=== PATIENT | male | born 1945 | race Caucasian/White ===

== ENCOUNTER 2018-11-20 20:10 | Emergency (ER) | payer BC ==
[2018-11-20 20:14] VITALS: BP 117/80
[2018-11-20 20:41] LABS: CHLORIDE,CL 108 mEq/L (98-106); SODIUM,NA 142 mEq/L (136-145)
--- NOTE | 2018-11-20 20:48 | EDM.PDOC ---
ED HPI GENERAL MEDICAL PROBLEM - General Chief Complaint: Cardiovascular Problem Stated Complaint: "chest pressure" twice today Time Seen by Provider: 11/20/18 20:42 Source of Information: Reports: Patient History Limitations: Reports: No Limitations - History of Present Illness INITIAL COMMENTS - FREE TEXT/NARRATIVE: This patient is a 73 year old male that presents to the ER. Patent reports that he was walking in a parade this morning about 11am, about 5 blocks. He reports during walking he began to have central chest pressure. Patient reports the pain lasted 1 hour and resolved after he was done waling the parade. Patient reports it resolved completely. Then this evening while out feeding the cows at 6:30pm, he started having this central chest pressure again. He reports after feeding the cows he went inside, sat at the table and still had the chest pressure. He reports then they decided to come to the ER. while driving here in the car the pressure resolved. His pressure during both episodes was a 3/10. Currently in the ER it is 0/10, completely resolved. Patient denies shortness of breath, nausea, vomiting, coughing, indigestion, burping. He reports the only symptom he had was chest pressure. Onset: Today Onset Date: 11/20/18 Onset Time: 11:00 Duration: Hour(s): (1), Resolved Prior to Arrival Location: Reports: Chest Quality: Reports: Pressure Severity: Mild Improves with: Reports: None Worsens with: Reports: None Associated Symptoms: Reports: Chest Pain. Denies: Confusion, Cough, cough w sputum, Diaphoresis, Fever/Chills, Headaches, Loss of Appetite, Malaise, Nausea/ Vomiting, Rash, Seizure, Shortness of Breath, Syncope, Weakness - Related Data Allergies Allergy/AdvReac Type Severity Reaction Status Date / Time atorvastatin calcium Allergy Weakness Verified 11/20/18 20:11 [From Lipitor] Home Meds: Home Meds Dutasteride [Avodart] 0.5 mg PO DAILY 04/01/14 [History] Lisinopril [Prinivil] 20 mg PO DAILY 04/01/14 [History] Metoprolol Succinate [Toprol XL] 25 mg PO DAILY 04/01/14 [History] Past Medical History HEENT History: Reports: Impaired Vision Cardiovascular History: Reports: High Cholesterol, Hypertension Respiratory History: Reports: Pneumonia, Recurrent, Sleep Apnea Gastrointestinal History: Reports: GERD Genitourinary History: Reports: Prostate Disorder, Renal Calculus Musculoskeletal History: Reports: Fracture - Past Surgical History GI Surgical History: Reports: Hernia Repair/Other Male Surgical History: Reports: Kidney Stone Extraction, Renal Calculus Musculoskeletal Surgical History: Reports: ORIF Social & Family History - Family History Family Medical History: Noncontributory - Tobacco Use Smoking Status *Q: Never Smoker - Caffeine Use Caffeine Use: Reports: None - Recreational Drug Use Recreational Drug Use: No ED ROS GENERAL - Review of Systems Review Of Systems: See Below Constitutional: Reports: No Symptoms HEENT: Reports: No Symptoms Respiratory: Reports: No Symptoms Cardiovascular: Reports: Chest Pain. Denies: Dyspnea on Exertion, Edema, Lightheadedness, Orthopnea, Palpitations, Syncope Endocrine: Reports: No Symptoms GI/Abdominal: Reports: No Symptoms. Denies: Nausea, Vomiting : Reports: No Symptoms Musculoskeletal: Reports: No Symptoms Skin: Reports: No Symptoms Neurological: Reports: No Symptoms Psychiatric: Reports: No Symptoms Hematologic/Lymphatic: Reports: No Symptoms Immunologic: Reports: No Symptoms ED EXAM, GENERAL - Physical Exam Exam: See Below Exam Limited By: No Limitations General Appearance: Alert, WD/WN, No Apparent Distress Eye Exam: Left Eye: Normal Inspection, PERRL Ears: Normal External Exam, Normal Canal, Hearing Grossly Normal, Normal TMs Ear Exam: Bilateral Ear: Auricle Normal, Canal Normal, TM normal Nose: Normal Inspection, Normal Mucosa, No Blood Throat/Mouth: Normal Inspection, Normal Lips, Normal Teeth, Normal Gums, Normal Oropharynx, Normal Voice, No Airway Compromise Head: Atraumatic, Normocephalic Neck: Normal Inspection, Supple, Non-Tender, Full Range of Motion Respiratory/Chest: No Respiratory Distress, Lungs Clear, Normal Breath Sounds, No Accessory Muscle Use, Chest Non-Tender Cardiovascular: Normal Peripheral Pulses, Regular Rate, Rhythm, No Edema, No Gallop, No JVD, No Murmur, No Rub Peripheral Pulses: 2+: Radial (L), Radial (R), Posterior Tibial (L), Posterior Tibial (R), Dorsalis Pedis (L), Dorsalis Pedis (R) GI/Abdominal: Normal Bowel Sounds, Soft, Non-Tender, No Organomegaly, No Distention, No Abnormal Bruit, Pelvis Stable, Hernia Back Exam: Normal Inspection, Full Range of Motion Extremities: Normal Inspection, Normal Range of Motion, Non-Tender, No Pedal Edema, Normal Capillary Refill Neurological: Alert, Oriented, Normal Cognition, Normal Gait, No Motor/Sensory Deficits Psychiatric: Normal Affect, Normal Mood Skin Exam: Warm, Dry, Intact, Normal Color, No Rash Lymphatic: No Adenopathy EKG INTERPRETATION EKG Date: 11/20/18 Time: 20:24 Rhythm: NSR Rate (Beats/Min): 72 Course - Vital Signs Last Recorded V/S: Last Vital Signs Temp 98.4 F 11/20/18 20:12 Pulse 72 11/20/18 20:12 Resp 18 11/20/18 20:12 BP 117/80 11/20/18 20:12 Pulse Ox 96 11/20/18 20:12 - Orders/Labs/Meds Orders: Active Orders 24 hr Category Date Time Status Chest 2V [CR] Stat Exams 11/20/18 20:14 Taken Labs: Laboratory Tests 11/20/18 11/20/18 11/20/18 Range/Units 20:22 20:22 20:22 WBC 6.3 (5.0-10.0) 10^3/uL RBC 4.48 L (4.50-6.00) 10^6/uL Hgb 14.8 (14.0-18.0) g/dL Hct 43.6 (40.0-54.0) % MCV 97.3 H (82.0-94.0) fL MCH 33.0 H (27.0-32.0) pg MCHC 33.9 (33.0-38.0) g/dL RDW Coeff of Pritesh 13.3 (11.0-15.0) % Plt Count 167 (150-400) 10^3/uL Neut % (Auto) 65.7 (35-85) % Lymph % (Auto) 22.2 (10-55) % [place] % (Auto) 8.3 (0-16) % Eos % (Auto) 3.3 (0-5) % Baso % (Auto) 0.5 (0-3) % Neut # (Auto) 4.14 (1.80-7.00) 10^3/uL Lymph # (Auto) 1.40 (1.00-4.80) 10^3/uL [place] # (Auto) 0.52 (0.00-0.80) 10^3/uL Eos # (Auto) 0.21 (0.00-0.45) 10^3/uL Baso # (Auto) 0.03 10^3/uL PT 10.2 (9.7-12.3) SEC INR 0.99 (0.92-1.18) Sodium 142 (136-145) mEq/L Potassium 3.9 (3.5-5.0) mEq/L Chloride 108 H (98-106) mEq/L Carbon Dioxide 25 (21-32) mmol/L BUN 24 H (7-18) mg/dL Creatinine 1.2 (0.7-1.3) mg/dL Est Cr Clr Drug Dosing 53.83 mL/min Estimated GFR (MDRD) 60 (>=60) mL/min Glucose 94 (75-99) mg/dL Calcium 8.6 (8.4-10.1) mg/dL Lactate Dehydrogenase 199 H (100-190) U/L Creatine Kinase 313 H (35-232) U/L Troponin I < 0.017 (0.00-0.06) ng/mL 11/20/18 Range/Units 23:26 WBC (5.0-10.0) 10^3/uL RBC (4.50-6.00) 10^6/uL Hgb (14.0-18.0) g/dL Hct (40.0-54.0) % MCV (82.0-94.0) fL MCH (27.0-32.0) pg MCHC (33.0-38.0) g/dL RDW Coeff of Pritesh (11.0-15.0) % Plt Count (150-400) 10^3/uL Neut % (Auto) (35-85) % Lymph % (Auto) (10-55) % [place] % (Auto) (0-16) % Eos % (Auto) (0-5) % Baso % (Auto) (0-3) % Neut # (Auto) (1.80-7.00) 10^3/uL Lymph # (Auto) (1.00-4.80) 10^3/uL [place] # (Auto) (0.00-0.80) 10^3/uL Eos # (Auto) (0.00-0.45) 10^3/uL Baso # (Auto) 10^3/uL PT (9.7-12.3) SEC INR (0.92-1.18) Sodium (136-145) mEq/L Potassium (3.5-5.0) mEq/L Chloride (98-106) mEq/L Carbon Dioxide (21-32) mmol/L BUN (7-18) mg/dL Creatinine (0.7-1.3) mg/dL Est Cr Clr Drug Dosing mL/min Estimated GFR (MDRD) (>=60) mL/min Glucose (75-99) mg/dL Calcium (8.4-10.1) mg/dL Lactate Dehydrogenase (100-190) U/L Creatine Kinase (35-232) U/L Troponin I < 0.017 (0.00-0.06) ng/mL - Radiology Interpretation Free Text/Narrative:: CXR: No infiltrates, no cardiomegaly, no pulmonary edema. - Re-Assessments/Exams Free Text/Narrative Re-Assessment/Exam: 11/20/18 23:53 Patient CP free during entire ER extended stay. Two negative troponins. Discussed case with [employer] hazmat tanker driver from [facility], will discharge patient home and he should have a stress test within the next couple of days. Patient reports he does have high cholesterol, but the medications make him ill so he will not take them. I educated to the patient to see his PCP preferably tuesday , Tuesday at the latest. I educated the patient that if his pain/pressure returns at all, he is to return to the ER [facility]. I wrote an order for the patient to obtain a stress test STAT. Patient voices back that he will see Shara Chapman Tuesday and call as soon as clinic opens to schedule Stress test. Departure - Departure Time of Disposition: 23:54 Disposition: Home, Self-Care 01 Condition: Fair Clinical Impression: Stable angina Chest pain Qualifiers: Chest pain type: other chest pain Qualified Code(s): R07.89 - Other chest pain Instructions: Nonspecific Chest Pain, [id number] Referrals: Rafa Ravi PA-C [Primary Care Provider] - Forms: ED Department Discharge Additional Instructions: Followup with your primary care provider Tuesday or Tuesday Return to the ER for worsening of condition or return or pain, or any other concerns Rest No activity STRESS TEST: PLEASE CALL [facility] FOR THIS TEST TO BE SCHEDULED Tuesday AT 8AM. I HAVE PLACED THE ORDER. Take Aspirin 81mg once a day until discuss with primary care provider - My Orders Last 24 Hours: My Active Orders 11/20/18 20:14 Chest 2V [CR] Stat - Assessment/Plan Last 24 Hours: My Active Orders 11/20/18 20:14 Chest 2V [CR] Stat Plan: PLEASE SEE RN NOTE FOR PFSH
== END 2018-11-21 00:09 | disposition home or self-care (01) ==
LOC: CC.ED 20:10
DX: I20.8 Other forms of angina pectoris (principal); E78.00 Pure hypercholesterolemia, unspecified; I10 Essential (primary) hypertension; K21.9 Gastro-esophageal reflux disease without esophagitis; Z88.8 Allergy status to other drugs, medicaments and biological substances; Z79.899 Other long term (current) drug therapy
CPT/HCPCS: 36415; 71046; 80048; 82550; 83615; 84484; 85025; 85610; 93005; 99285-25

== ENCOUNTER 2019-05-08 09:45 | Emergency (ER) | payer BC ==
[~2019-05-08 09:45] MED LIST: Ketorolac 30 MG/ML SDV ONE; Lactated Ringers 1,000 ML ONE
[2019-05-08] MEDS ORDERED: Ketorolac 30 MG/ML SDV IVPUSH ONE (09:50)
[2019-05-08] MEDS ORDERED: Lactated Ringers 1,000 ML IV ONE (09:57)
[2019-05-08 10:02] VITALS: BP 145/87; PULSE 75
--- NOTE | 2019-05-08 11:34 | EDM.PDOC ---
ED HPI GENERAL MEDICAL PROBLEM - General Chief Complaint: Abdominal Pain Stated Complaint: abd pain Time Seen by Provider: 05/08/19 10:15 Source of Information: Reports: Patient History Limitations: Reports: No Limitations - History of Present Illness INITIAL COMMENTS - FREE TEXT/NARRATIVE: Adam is a 73 year old male who presents to the ED with c/o left flank pain radiating to his left groin. He reports onset of pain around 0700 this morning. Pain has been constant since. Rates pain a /10. He does appear in acute distress. He reports pain is constant. Has not had any fevers, chills, N/V/D, chest pain, shortness of breath, hematuria, dysuria. Does report he has a history of kidney stones. Is also 7 wks status post CABG x 4. Onset: Today, Sudden Onset Date: 05/08/19 Onset Time: 07:00 Duration: Constant Location: Reports: Back (left flank), Radiates to, Other (left groin) Quality: Reports: Sharp Severity: Severe Improves with: Reports: None Worsens with: Reports: None Associated Symptoms: Reports: No Other Symptoms Left Lower Abdomen Pain Score (Numeric/FACES): 9 - Related Data Allergies Allergy/AdvReac Type Severity Reaction Status Date / Time atorvastatin calcium Allergy Weakness Verified 05/08/19 09:49 [From Lipitor] Home Meds: Home Meds Dutasteride [Avodart] 0.5 mg PO DAILY 04/01/14 [History] Lisinopril [Prinivil] 5 mg PO DAILY 04/01/14 [History] Metoprolol Succinate [Toprol XL] 75 mg PO DAILY 04/01/14 [History] Aspirin [Adult Low Dose Aspirin EC] 81 tab PO DAILY 11/22/18 [History] Clopidogrel [Plavix] 75 mg PO DAILY 05/08/19 [History] Ketorolac [Toradol] 10 mg PO Q6H PRN #20 tab 05/08/19 [Rx] Nitroglycerin [Nitrostat] 0.4 mg PO ASDIRECTED 05/08/19 [History] Rosuvastatin [Crestor] 40 mg PO DAILY 05/08/19 [History] Past Medical History HEENT History: Reports: Impaired Vision Cardiovascular History: Reports: Bypass, CAD, High Cholesterol, Hypertension, [place] Respiratory History: Reports: Pneumonia, Recurrent, Sleep Apnea Gastrointestinal History: Reports: GERD, Hiatal Hernia Genitourinary History: Reports: Prostate Disorder, Renal Calculus Musculoskeletal History: Reports: Fracture - Past Surgical History GI Surgical History: Reports: Hernia Repair/Other Male Surgical History: Reports: Kidney Stone Extraction, Renal Calculus Musculoskeletal Surgical History: Reports: ORIF, Other (See Below) Other Musculoskeletal Surgeries/Procedures:: L) upper arm shrapnel Social & Family History - Family History Family Medical History: Noncontributory - Tobacco Use Smoking Status *Q: Never Smoker - Caffeine Use Caffeine Use: Reports: Coffee - Recreational Drug Use Recreational Drug Use: No ED ROS GENERAL - Review of Systems Review Of Systems: Comprehensive ROS is negative, except as noted in HPI. ED EXAM, RENAL/ - Physical Exam Exam: See Below Exam Limited By: No Limitations General Appearance: Alert, WD/WN, No Apparent Distress Throat/Mouth: Normal Inspection, Normal Lips, Normal Teeth, Normal Gums, Normal Oropharynx, Normal Voice, No Airway Compromise Head: Atraumatic, Normocephalic Neck: Normal Inspection, Supple, Non-Tender, Full Range of Motion Respiratory/Chest: No Respiratory Distress, Lungs Clear, Normal Breath Sounds, No Accessory Muscle Use, Chest Non-Tender Cardiovascular: Normal Peripheral Pulses, Regular Rate, Rhythm, No Edema, No Gallop, No JVD, No Murmur, No Rub GI/Abdominal: Normal Bowel Sounds, Soft, Non-Tender, No Distention, No Abnormal Bruit, No Mass Back Exam: Normal Inspection, Full Range of Motion. No: CVA Tenderness (L), CVA Tenderness (R) Extremities: Normal Inspection, Normal Range of Motion, Non-Tender, Normal Capillary Refill, No Pedal Edema Neurological: Alert, Oriented, CN II-XII Intact, Normal Cognition, Normal Gait, Normal Reflexes, No Motor/Sensory Deficits Psychiatric: Normal Affect, Normal Mood Skin Exam: Warm, Dry, Intact, Normal Color, No Rash Course - Vital Signs Last Recorded V/S: Last Vital Signs Temp 98.6 F 05/08/19 09:50 Pulse 75 05/08/19 09:50 Resp 16 05/08/19 09:50 BP 145/87 H 05/08/19 09:50 Pulse Ox 97 05/08/19 09:50 - Orders/Labs/Meds Orders: Active Orders 24 hr Category Date Time Status Abdomen Pelvis wo Cont [CT] Stat Exams 05/08/19 10:22 Taken Labs: Laboratory Tests 05/08/19 05/08/19 05/08/19 Range/Units 09:50 09:55 09:55 WBC 9.9 (5.0-10.0) 10^3/uL RBC 4.38 L (4.50-6.00) 10^6/uL Hgb 14.1 (14.0-18.0) g/dL Hct 43.9 (40.0-54.0) % MCV 100.2 H (82.0-94.0) fL MCH 32.2 H (27.0-32.0) pg MCHC 32.1 L (33.0-38.0) g/dL RDW Coeff of Pritesh 14.2 (11.0-15.0) % Plt Count 208 (150-400) 10^3/uL Neut % (Auto) 78.7 (35-85) % Lymph % (Auto) 11.3 (10-55) % [place] % (Auto) 7.5 (0-16) % Eos % (Auto) 2.1 (0-5) % Baso % (Auto) 0.4 (0-3) % Neut # (Auto) 7.76 H (1.80-7.00) 10^3/uL Lymph # (Auto) 1.12 (1.00-4.80) 10^3/uL [place] # (Auto) 0.74 (0.00-0.80) 10^3/uL Eos # (Auto) 0.21 (0.00-0.45) 10^3/uL Baso # (Auto) 0.04 10^3/uL Sodium 140 (136-145) mEq/L Potassium 4.0 (3.5-5.0) mEq/L Chloride 102 (98-106) mEq/L Carbon Dioxide 27 (21-32) mmol/L BUN 24 H (7-18) mg/dL Creatinine 1.3 (0.7-1.3) mg/dL Est Cr Clr Drug Dosing 49.69 mL/min Estimated GFR (MDRD) 54 L (>=60) mL/min Glucose 111 H (75-99) mg/dL Calcium 9.7 (8.4-10.1) mg/dL Total Bilirubin 0.4 (0.0-1.0) mg/dL AST 13 L (15-37) U/L ALT 16 (12-78) U/L Alkaline Phosphatase 88 (46-116) U/L C-Reactive Protein 1.1 H (0.2-0.8) mg/dL Total Protein 7.8 (6.4-8.2) g/dL Albumin 3.7 (3.4-5.0) g/dL Urine Color Yellow (YELLOW) Urine Appearance Slightly cloudy (CLEAR) Urine pH 5.0 (4.5-8.0) Ur Specific [place] 1.015 (1.003-1.020) Urine Protein 100 H (NEGATIVE) mg/dL Urine Glucose (UA) Negative (NEGATIVE) mg/dL Urine Ketones Negative (NEGATIVE) mg/dL Urine Occult Blood Large H (NEGATIVE) Urine Nitrite Negative (NEGATIVE) Urine Bilirubin Negative (NEGATIVE) Urine Urobilinogen 0.2 (0.2-1.0) EU/dL Ur Leukocyte Esterase Negative (NEGATIVE) Urine RBC 75-100 H (0-5) /HPF Urine WBC 0-5 (0-5) /HPF Ur Epithelial Cells Few H (NOT SEEN) /HPF Amorphous Sediment Moderate H (NOT SEEN) /HPF Urine Bacteria Few H (NOT SEEN) /HPF Meds: Medications Discontinued Medications Generic Name Dose Route Start Last Admin Trade Name Tonja PRN Reason Stop Dose Admin Lactated Ringer's Confirm 05/08/19 09:41 05/08/19 10:08 Ringers, Lactated Administered 05/08/19 09:42 Not Given Dose 1,000 mls @ as directed .ROUTE .STK-MED ONE Lactated Ringer's 1,000 mls @ 999 mls/hr 05/08/19 09:57 05/08/19 09:55 Ringers, Lactated IV 05/08/19 10:57 999 mls/hr .BOLUS ONE Administration Ketorolac Tromethamine 30 mg 05/08/19 09:50 05/08/19 09:50 Toradol IVPUSH 05/08/19 09:51 30 mg ONETIME ONE Administration Ketorolac Tromethamine Confirm 05/08/19 09:40 05/08/19 10:08 Toradol Administered 05/08/19 09:41 Not Given Dose 30 mg .ROUTE .STK-MED ONE - Radiology Interpretation Free Text/Narrative:: CT shows 3 mm stone in distal left ureter, almost at junction of bladder. Does also have mild hydroureternephrosis on left side. Other findings include large hiatal hernia and small right pleural effusion. Findings discussed with patient and spouse. CT Results Date: 05/08/19 CT Results Time: 11:28 Departure - Departure Time of Disposition: :29 Disposition: Home, Self-Care 01 Condition: Fair Clinical Impression: Left ureteral stone - Discharge Information *PRESCRIPTION DRUG MONITORING PROGRAM REVIEWED*: Not Applicable *COPY OF PRESCRIPTION DRUG MONITORING REPORT IN PATIENT HERB: Not Applicable Prescriptions: Ketorolac [Toradol] 10 mg PO Q6H PRN #20 tab PRN Reason: Pain Instructions: Kidney Stones, [id number] Referrals: Rafa Ravi PA-C [Primary Care Provider] - Forms: ED Department Discharge Additional Instructions: The following six steps can be taken to reduce the risk of forming calcium oxalate stones: 1. Eat fewer high-oxalate foods. The first suggestion is the most obvious. The more oxalate that is absorbed from your digestive tract, the more oxalate in your urine. High-oxalate foods to limit, if you eat them, are: * Spinach * Bran flakes * Rhubarb * Beets * Potato chips * Albanian fries * Nuts and nut butters You do not need to cut out other healthy foods that provide some oxalate. In fact, oxalate is practically unavoidable, because most plant foods have some. Often a combination of calcium from foods or beverages with meals and fewer high -oxalate foods is required. 2. Increase the amount of calcium in your diet. Low amounts of calcium in your diet will increase your chances of forming calcium oxalate kidney stones. Many people are afraid to eat calcium because of the name "calcium oxalate stones." However, calcium binds oxalate in the intestines. A diet rich in calcium helps reduce the amount of oxalate being absorbed by your body, so stones are less likely to form. Eat calcium rich foods and beverages every day (2 to 3 servings) from dairy foods or other calcium-rich foods. Also, eating high calcium foods at the same time as high oxalate food is helpful ; for example have low fat cheese with a spinach salad or yogurt with berries. If you take a calcium supplement, calcium citrate is the preferred form. 3. Limit the vitamin C content of your diet. Oxalate is produced as an end product of Vitamin C (ascorbic acid) metabolism. Large doses of Vitamin C may increase the amount of oxalate in your urine, increasing the risk of kidney stone formation. If you are taking a supplement, do not take more than 500 mg of Vitamin C daily. 4. Drink the right amount of fluids every day. It is very important to drink plenty of liquids. Your goal should be 10-12 glasses a day. At least 5-6 glasses should be water. You may also want to consider drinking lemonade. Research suggests that lemonade may be helpful in reducing the risk of calcium oxalate stone formation. 5. Eat the right amount of protein daily. Eating large amounts of protein may increase the risk of kidney stone formation. Your daily protein needs can usually be met with 2-3 servings a day, or 4 to 6 ounces. Eating more than this if you are at risk at kidney stones is unnecessary. 6. Reduce the amount of sodium in your diet. Reduce the amount of sodium in your diet to 2-3 grams per day. Limit eating processed foods such as hot dogs, deli meats, sausage, canned products, dry soup mixes, sauerkraut, pickles, and various convenience mixes. - Toradol 1 tablet every 6 hours as needed for pain - Push fluids - Follow up with PCP for recheck in 5-7 days, sooner if needed - Return to ED for any emergent needs - Problem List & Annotations (1) Left ureteral stone SNOMED Code(s): 07728420 Code(s): N20.1 - CALCULUS OF URETER Status: Acute - My Orders Last 24 Hours: My Active Orders 05/08/19 10:22 Abdomen Pelvis wo Cont [CT] Stat - Assessment/Plan Last 24 Hours: My Active Orders 05/08/19 10:22 Abdomen Pelvis wo Cont [CT] Stat Plan: Patient was given 30 mg Toradol and 1 L LR fluid bolus. Did report pain improved from 10/10 to 0/10 following Toradol. Throughout remainder of ED stay, patient had no further pain. CT did show 3 mm stone of left distal ureter, almost into bladder. Discussed these findings with patient and that he should pass stone on own without difficulty. Did discuss straining urine to determine passing of stone. He does have strainer at home. Recommend he continue Avodart and use Toradol as needed for pain. Recommend he follow up with his PCP for recheck next week, sooner if any issues. Patient and spouse verbalized understanding and were agreeable with plan. Patient discharged home in satisfactory condition with no further c/o pain.
== END 2019-05-08 11:40 | disposition home or self-care (01) ==
LOC: CC.ED 09:45
DX: N13.2 Hydronephrosis with renal and ureteral calculous obstruction (principal); I10 Essential (primary) hypertension; E78.00 Pure hypercholesterolemia, unspecified; I25.10 Atherosclerotic heart disease of native coronary artery without angina pectoris; K21.9 Gastro-esophageal reflux disease without esophagitis; Z88.8 Allergy status to other drugs, medicaments and biological substances; Z79.899 Other long term (current) drug therapy
CPT/HCPCS: 36415; 74176; 80053; 81001; 85025; 86140; 96361; 96374; 99284; J1885; J7120

== ENCOUNTER 2023-03-07 19:08 | Emergency (ER) | payer BC ==
[2023-03-07 19:11] VITALS: BP 140/81; PULSE 67
[2023-03-07] MEDS: Take Home: Amoxicillin/Clavulanate K 875-125 MG Tab, 2 Tab Pack PO ONE (19:50)
[2023-03-07] MEDS: Diphtheria,Pertussis(Acell),Tetanus Vaccine 0.5 ML Syringe IM ONE (19:50)
== END 2023-03-07 19:59 | disposition home or self-care (01) ==
LOC: CC.ED 19:08
DX: S51.851A Open bite of right forearm, initial encounter (principal); I25.10 Atherosclerotic heart disease of native coronary artery without angina pectoris; E78.00 Pure hypercholesterolemia, unspecified; I10 Essential (primary) hypertension; I25.2 Old myocardial infarction; Z23 Encounter for immunization; Z88.8 Allergy status to other drugs, medicaments and biological substances; Z79.82 Long term (current) use of aspirin; Z79.899 Other long term (current) drug therapy; W55.01XA Bitten by cat, initial encounter
CPT/HCPCS: 90471; 90715; 99283; 99283-25; A9270-GY

== ENCOUNTER 2023-11-18 12:11 | Emergency (ER) | payer BC ==
[2023-11-18 12:38] VITALS: BP 121/80; PULSE 58
[2023-11-18 12:47] LABS: BASOPHILS ABSOLUTE AUTO 0.02 10^3/uL (0.00-0.50); BASOPHILS PERCENT AUTO 0.3 % (0-1); EOSINOPHILS ABSOLUTE AUTO 0.19 10^3/uL (0.00-1.50); HEMATOCRIT 48.6 % (42.0-52.0); HEMOGLOBIN 15.9 g/dL (14.0-18.0); IMMATURE GRAN ABSOLUTE AUTO 0.02 10^3/uL (0.00-0.49); IMMATURE GRAN PERCENT AUTO 0.3 % (0.0-4.9); LYMPHOCYTES ABSOLUTE AUTO 1.21 10^3/uL (0.60-5.00); MEAN CORPUSCULAR HEMOGLOBIN 32.6 pg (27.0-32.0); MEAN CORPUSCULAR HGB CONC 32.7 g/dL (32.0-36.0); MEAN CORPUSCULAR VOLUME 99.8 fL (83.0-97.0); MONOCYTES ABSOLUTE AUTO 0.48 10^3/uL (0.00-1.50); MONOCYTES PERCENT AUTO 7.5 % (0-10); NEUTROPHILS ABSOLUTE AUTO 4.45 x10^3/uL (1.80-8.00); NEUTROPHILS PERCENT AUTO 69.9 % (41-71); PLATELET COUNT,PLT 171 10^3/uL (150-400); RED BLOOD CELL COUNT 4.87 x10^6/uL (4.50-6.00); WHITE BLOOD CELL COUNT,WBC 6.4 10^3/uL (4.0-11.0)
[2023-11-18 13:02] LABS: ALANINE AMINOTRANSFERASE,ALT 24 U/L (12-78); ALBUMIN 3.6 g/dL (3.4-5.0); ALKALINE PHOSPHATASE 83 U/L (46-116); ASPARTATE AMNIOTRANSFERASE,AST 19 U/L (15-37); BILIRUBIN TOTAL 0.4 mg/dL (0.0-1.0); BLOOD UREA NITROGEN,BUN 29 mg/dL (7-18); CALCIUM 8.6 mg/dL (8.4-10.1); CARBON DIOXIDE,CO2 26 mmol/L (21-32); CHLORIDE,CL 106 mEq/L (98-106); CREATININE 1.1 mg/dL (0.7-1.3); EST CRCL DRUG DOSING (CG) 50.75 mL/min; GLUCOSE RANDOM 100 mg/dL (75-99); MAGNESIUM 2.1 mg/dL (1.8-2.4); POTASSIUM,K 4.3 mEq/L (3.5-5.0); SODIUM,NA 141 mEq/L (136-145)
[2023-11-18 13:03] LABS: C-REACTIVE PROTEIN < 0.50 mg/dL (<=0.50); ESTIMATED GFR 69 mL/min (>=60)
== END 2023-11-18 14:40 | disposition home or self-care (01) ==
LOC: CC.ED 12:11
DX: S46.912A Strain of unspecified muscle, fascia and tendon at shoulder and upper arm level, left arm, initial encounter (principal); H61.23 Impacted cerumen, bilateral; R55 Syncope and collapse; I10 Essential (primary) hypertension; E78.00 Pure hypercholesterolemia, unspecified; I25.2 Old myocardial infarction; K21.9 Gastro-esophageal reflux disease without esophagitis; I25.10 Atherosclerotic heart disease of native coronary artery without angina pectoris; Z79.899 Other long term (current) drug therapy; Z88.8 Allergy status to other drugs, medicaments and biological substances; Z79.82 Long term (current) use of aspirin; Z95.1 Presence of aortocoronary bypass graft; W19.XXXA Unspecified fall, initial encounter
CPT/HCPCS: 36415; 71045; 80053; 83735; 84484; 85025; 86140; 93005; 93010; 99284

== ENCOUNTER 2024-02-24 11:11 | Emergency (ER) | payer BC ==
[2024-02-24] MEDS: Aspirin 81 MG Tab.Chew PO ONE (11:18)
[2024-02-24 11:39] LABS: BASOPHILS ABSOLUTE AUTO 0.02 10^3/uL (0.00-0.50); BASOPHILS PERCENT AUTO 0.4 % (0-1); EOSINOPHILS PERCENT AUTO 1.8 % (0-6); HEMATOCRIT 46.6 % (42.0-52.0); HEMOGLOBIN 15.5 g/dL (14.0-18.0); IMMATURE GRAN ABSOLUTE AUTO 0.02 10^3/uL (0.00-0.49); IMMATURE GRAN PERCENT AUTO 0.4 % (0.0-4.9); LYMPHOCYTES ABSOLUTE AUTO 0.86 10^3/uL (0.60-5.00); LYMPHOCYTES PERCENT AUTO 15.8 % (24-44); MEAN CORPUSCULAR HEMOGLOBIN 32.8 pg (27.0-32.0); MEAN CORPUSCULAR HGB CONC 33.3 g/dL (32.0-36.0); MEAN CORPUSCULAR VOLUME 98.5 fL (83.0-97.0); MONOCYTES ABSOLUTE AUTO 0.37 10^3/uL (0.00-1.50); MONOCYTES PERCENT AUTO 6.8 % (0-10); NEUTROPHILS ABSOLUTE AUTO 4.07 x10^3/uL (1.80-8.00); NEUTROPHILS PERCENT AUTO 74.8 % (41-71); PLATELET COUNT,PLT 160 10^3/uL (150-400); RED BLOOD CELL COUNT 4.73 x10^6/uL (4.50-6.00); WHITE BLOOD CELL COUNT,WBC 5.4 10^3/uL (4.0-11.0)
[2024-02-24 11:51] LABS: ALBUMIN 3.4 g/dL (3.4-5.0); BILIRUBIN TOTAL 0.5 mg/dL (0.0-1.0); CALCIUM 8.7 mg/dL (8.4-10.1); CREATININE 1.2 mg/dL (0.7-1.3); EST CRCL DRUG DOSING (CG) 49.88 mL/min; PROTEIN TOTAL,TP 6.8 g/dL (6.4-8.2)
[2024-02-24 12:00] LABS: PROTHROMBIN TIME 10.5 SEC (9.3-11.3); PTT,PARTIAL THROMBOPLSTIN TIME 24.4 SEC (20.0-30.0)
[2024-02-24 15:21] VITALS: BP 141/92; PULSE 58
== END 2024-02-24 16:10 | disposition home or self-care (01) ==
LOC: SUPCPDRO 11:11 → CC.ED 11:11
DX: R07.9 Chest pain, unspecified (principal); I25.10 Atherosclerotic heart disease of native coronary artery without angina pectoris; I10 Essential (primary) hypertension; I25.2 Old myocardial infarction; Z79.82 Long term (current) use of aspirin; Z79.899 Other long term (current) drug therapy; Z88.8 Allergy status to other drugs, medicaments and biological substances
CPT/HCPCS: 36415; 71046; 80053; 84484; 85025; 85610; 85730; 93005; 93010; 99284; 99285; A9270-GY

== ENCOUNTER 2024-08-28 14:10 | Emergency (ER) | payer BC ==
[2024-08-28] MEDS: Aspirin 81 MG Tab.Chew PO ONE (14:15)
[2024-08-28 14:27] LABS: BASOPHILS ABSOLUTE AUTO 0.02 10^3/uL (0.00-0.50); BASOPHILS PERCENT AUTO 0.2 % (0-1); EOSINOPHILS ABSOLUTE AUTO 0.14 10^3/uL (0.00-1.50); EOSINOPHILS PERCENT AUTO 1.5 % (0-6); HEMATOCRIT 48.3 % (42.0-52.0); IMMATURE GRAN ABSOLUTE AUTO 0.02 10^3/uL (0.00-0.49); IMMATURE GRAN PERCENT AUTO 0.2 % (0.0-4.9); LYMPHOCYTES ABSOLUTE AUTO 1.15 10^3/uL (0.60-5.00); LYMPHOCYTES PERCENT AUTO 12.4 % (24-44); MEAN CORPUSCULAR HEMOGLOBIN 31.9 pg (27.0-32.0); MEAN CORPUSCULAR HGB CONC 33.1 g/dL (32.0-36.0); MEAN CORPUSCULAR VOLUME 96.4 fL (83.0-97.0); MONOCYTES ABSOLUTE AUTO 0.66 10^3/uL (0.00-1.50); MONOCYTES PERCENT AUTO 7.1 % (0-10); NEUTROPHILS ABSOLUTE AUTO 7.28 x10^3/uL (1.80-8.00); NEUTROPHILS PERCENT AUTO 78.6 % (41-71); PLATELET COUNT,PLT 156 10^3/uL (150-400); RED BLOOD CELL COUNT 5.01 x10^6/uL (4.50-6.00); WHITE BLOOD CELL COUNT,WBC 9.3 10^3/uL (4.0-11.0)
[2024-08-28 14:43] LABS: ALBUMIN 3.6 g/dL (3.4-5.0); BILIRUBIN TOTAL 0.5 mg/dL (0.0-1.0); CALCIUM 8.9 mg/dL (8.4-10.1); CREATININE 1.1 mg/dL (0.7-1.3); EST CRCL DRUG DOSING (CG) 51.74 mL/min; MAGNESIUM 1.9 mg/dL (1.8-2.4); POTASSIUM,K 3.8 mEq/L (3.5-5.0); PROTEIN TOTAL,TP 7.3 g/dL (6.4-8.2)
[2024-08-28] MEDS: Iopamidol 755 Mg/ML 100 ML Bottle IVPUSH ONE (15:47)
[2024-08-28 16:14] VITALS: BP 123/79; PULSE 60
== END 2024-08-28 16:45 | disposition home or self-care (01) ==
LOC: CC.ED 14:10
DX: R07.9 Chest pain, unspecified (principal); I25.10 Atherosclerotic heart disease of native coronary artery without angina pectoris; I25.2 Old myocardial infarction; I10 Essential (primary) hypertension; Z88.8 Allergy status to other drugs, medicaments and biological substances; Z79.82 Long term (current) use of aspirin; Z79.899 Other long term (current) drug therapy
CPT/HCPCS: 36415; 71045; 71275; 80053; 83690; 83735; 84484; 85025; 85730; 86140; 87428-QW; 93005; 93010; 99284; 99285; A9270-GY; Q9967

== ENCOUNTER 2024-09-11 14:36 | Emergency (ER) | payer BC ==
[2024-09-11 14:40] VITALS: BP 143/98; PULSE 78
== END 2024-09-11 16:40 | disposition home or self-care (01) ==
LOC: CC.ED 14:36
DX: K59.00 Constipation, unspecified (principal); I25.10 Atherosclerotic heart disease of native coronary artery without angina pectoris; E78.00 Pure hypercholesterolemia, unspecified; I10 Essential (primary) hypertension; I25.2 Old myocardial infarction; Z88.1 Allergy status to other antibiotic agents; Z79.02 Long term (current) use of antithrombotics/antiplatelets; Z79.899 Other long term (current) drug therapy
CPT/HCPCS: 74019; 99283; 99284